=== PATIENT | female | born 1990 | race Caucasian/White ===

== ENCOUNTER 2017-08-06 08:01 | Outpatient (CLI) | payer OTHER | END 2017-08-06 08:52 | disposition home or self-care (01) | LOC: NUCLEAR 08:01 | DX: R19.6 Halitosis (principal) | CPT/HCPCS: 78264; A9541 ==

== ENCOUNTER → 2017-09-30 | Outpatient (CLI) | payer OTHER | END | disposition home or self-care (01) | LOC: RAD 501 15:07 | DX: M25.561 Pain in right knee (principal); M25.562 Pain in left knee; R05 Cough ==

== ENCOUNTER 2017-10-11 18:56 | Emergency (ER) | payer OTHER ==
[~2017-10-11] VITALS: Ht 157.5 cm; Wt 90.7 kg
== END 2017-10-11 22:37 | disposition home or self-care (01) ==
LOC: ER 18:56
DX: J11.1 Influenza due to unidentified influenza virus with other respiratory manifestations (principal); J06.9 Acute upper respiratory infection, unspecified

== ENCOUNTER → 2018-07-12 | Emergency (ER) | payer OTHER ==
[~2018-07-12] VITALS: Ht 157.5 cm; Wt 90.7 kg
== END | disposition home or self-care (01) ==
LOC: ER 09:11
DX: R19.7 Diarrhea, unspecified (principal)

== ENCOUNTER → 2018-10-30 | Outpatient (CLI) | payer OTHER | END | disposition home or self-care (01) | LOC: RAD 11:45 | DX: R05 Cough (principal) ==

== ENCOUNTER 2020-07-13 08:25 | Outpatient (CLI) | payer OTHER | END 2020-07-13 08:32 | disposition home or self-care (01) | LOC: SONOGRAMA 08:25 | DX: R10.11 Right upper quadrant pain (principal) ==

== ENCOUNTER 2021-01-16 14:56 | Outpatient (CLI) | payer OTHER | END 2021-01-16 15:12 | disposition home or self-care (01) | LOC: RAD 14:56 | DX: R07.89 Other chest pain (principal) ==